=== PATIENT | female | born 1965 | race Caucasian/White ===

== ENCOUNTER 2021-04-17 08:11 | Outpatient (REF) | payer OTHER, SELFPAY ==
[2021-04-17 11:39] LABS: Hemoglobin 13.8 g/dl (12.0-16.0); Mean Corpuscular HGB Conc 32.1 g/dl (31.0-35.0); Mean Corpuscular Hemoglobin 28.4 pg (27.0-33.0); Mean Corpuscular Volume 88.5 fL (80-98); Mean Platelet Volume 10.3 fL (9.4-12.3); Platelet Count 378 X10*3/uL (160-400); Red Blood Count 4.86 X10*6/uL (4.20-5.50); White Blood Count 5.8 X10*3/uL (4.8-10.8)
[2021-04-17 12:02] LABS: Estimated Average Glucose 105 mg/dL; Hemoglobin A1c % 5.3 %
[2021-04-17 12:03] LABS: Alanine Aminotransferase 18 U/L (0-31); Albumin Level 4.6 g/dL (3.5-5.0); Alkaline Phosphatase 90 U/L (39-117); Anion Gap 12 (12-20); Aspartate Amino Transferase 15 U/L (5-31); Bilirubin Total 0.4 mg/dL (0.0-1.0); Blood Urea Nitrogen 21 mg/dL (9-16); Calcium 9.6 mg/dL (8.4-10.2); Carbon Dioxide 29 mmol/L (22-29); Chloride 103 mmol/L (96-108); Cholesterol 242 mg/dL; Estimated Glomerular Filt Rate > 60; Glucose Fasting 84 mg/dL (60-99); HDL Cholesterol 63 mg/dL; LDL Cholesterol Calculated 151 mg/dl; Sodium 140 mmol/L (135-145); Total Protein 7.2 g/dL (6.5-8.0); Triglycerides 141 mg/dL
[2021-04-17 12:08] LABS: TSH reflex Free T4 2.42 uIU/mL (0.32-4.0)
== END 2021-04-17 08:12 | disposition home or self-care (01) ==
LOC: HO.HMGCLDS 08:11
PROVIDERS: PCP Physician Assistant; Visit Provider Physician Assistant
DX: I10 Essential (primary) hypertension (principal); Z13.1 Encounter for screening for diabetes mellitus; Z13.220 Encounter for screening for lipoid disorders; Z13.29 Encounter for screening for other suspected endocrine disorder
CPT/HCPCS: 36415; 80053; 80061; 83036; 84443; 85027

== ENCOUNTER 2021-06-18 06:59 | Outpatient (REF) | payer OTHER, SELFPAY ==
[2021-06-18 11:46] LABS: Alanine Aminotransferase 10 U/L (0-31); Albumin Level 4.1 g/dL (3.5-5.0); Alkaline Phosphatase 98 U/L (39-117); Anion Gap 12 (12-20); Aspartate Amino Transferase 13 U/L (5-31); Bilirubin Total 0.3 mg/dL (0.0-1.0); Blood Urea Nitrogen 23 mg/dL (9-16); C Reactive Protein 1.78 mg/dL (< or = 0.50); Calcium 9.5 mg/dL (8.4-10.2); Carbon Dioxide 27 mmol/L (22-29); Chloride 105 mmol/L (96-108); Cholesterol 196 mg/dL; Estimated Glomerular Filt Rate > 60; Glucose Fasting 91 mg/dL (60-99); HDL Cholesterol 50 mg/dL; LDL Cholesterol Calculated 121 mg/dl; Potassium 4.4 mmol/L (3.3-5.1); Rheumatoid Factor < 15.0 IU/mL (<15.0); Sodium 140 mmol/L (135-145); Triglycerides 125 mg/dL
[2021-06-18 12:23] LABS: Erythrocyte Sedimentation Rate 29 MM/HR (0-20)
[2021-06-20 15:06] LABS: Anti Nuclear Antibody Screen NEGATIVE (NEGATIVE)
== END 2021-06-18 07:00 | disposition home or self-care (01) ==
LOC: HO.HMGCLDS 06:59
PROVIDERS: PCP Physician Assistant; Visit Provider Physician Assistant
DX: R10.32 Left lower quadrant pain (principal); M25.50 Pain in unspecified joint; E78.9 Disorder of lipoprotein metabolism, unspecified
CPT/HCPCS: 36415; 80053; 80061; 85652; 86038; 86039; 86140; 86431

== ENCOUNTER 2021-06-26 09:01 | Outpatient (REF) | payer OTHER, SELFPAY ==
--- NOTE | ~2021-06-26 | XR_ITS ---
EXAMINATION: XR ANKLE, RIGHT CLINICAL INFORMATION: Pain. COMPARISON: None TECHNIQUE: AP, lateral, and mortise views of the right ankle. FINDINGS: Bony alignment and mineralization are normal. No fracture or dislocation is seen. There is a right ankle joint effusion. Boehler's angle is normal. There is no calcaneal spur. There is degenerative change of the dorsal midfoot. There is mild generalized soft tissue swelling. XR/XR ankle RT min 3V IMPRESSION: 1. No fracture or dislocation is seen. 2. There is a right ankle joint effusion. 3. There is mild generalized soft tissue swelling.
== END 2021-06-26 09:02 | disposition home or self-care (01) ==
LOC: HO.XRAY 09:01
PROVIDERS: PCP Physician Assistant; Visit Provider Nurse Practitioner Family
DX: M25.571 Pain in right ankle and joints of right foot (principal); M25.473 Effusion, unspecified ankle
CPT/HCPCS: 73610

== ENCOUNTER 2021-07-11 07:32 | Outpatient (REF) | payer OTHER, SELFPAY ==
--- NOTE | ~2021-07-11 | XR_ITS ---
EXAMINATION: XR ANKLE, RIGHT CLINICAL INFORMATION: Effusion right ankle COMPARISON: None TECHNIQUE: AP, lateral, and mortise views of the right ankle. FINDINGS: There is mild soft tissue swelling along the bilateral malleoli. The ankle mortise and subtalar joints are normal. No visible fracture or dislocation seen. There is body seen. XR/XR ankle RT min 3V IMPRESSION: Mild bimalleolar soft tissue swelling. No underlying fracture, dislocation or subluxation seen.
[2021-07-11 11:21] LABS: Hematocrit 39.6 % (37-47); Hemoglobin 12.6 g/dl (12.0-16.0); Mean Corpuscular HGB Conc 31.8 g/dl (31.0-35.0); Mean Corpuscular Hemoglobin 27.4 pg (27.0-33.0); Mean Corpuscular Volume 86.1 fL (80-98); Platelet Count 412 X10*3/uL (160-400); Red Cell Distribution Width 14.4 % (11.0-16.0); White Blood Count 9.4 X10*3/uL (4.8-10.8)
[2021-07-11 12:05] LABS: Anion Gap 16 (12-20); Blood Urea Nitrogen 25 mg/dL (9-16); C Reactive Protein 9.45 mg/dL (< or = 0.50); Carbon Dioxide 24 mmol/L (22-29); Chloride 102 mmol/L (96-108); Estimated Glomerular Filt Rate > 60; Glucose Random 80 mg/dL (60-115); Potassium 4.2 mmol/L (3.3-5.1); Sodium 138 mmol/L (135-145)
[2021-07-11 12:11] LABS: Erythrocyte Sedimentation Rate 56 MM/HR (0-20)
[2021-07-12 11:47] LABS: Lyme Abs Screen <0.90 index
== END 2021-07-11 07:33 | disposition home or self-care (01) ==
LOC: HO.HMGCLDS 07:32
PROVIDERS: PCP Physician Assistant; Visit Provider Physician Assistant
DX: L03.115 Cellulitis of right lower limb (principal); I10 Essential (primary) hypertension; M25.50 Pain in unspecified joint; M25.471 Effusion, right ankle
CPT/HCPCS: 36415; 73610; 80048; 85027; 85652; 86140; 86617; 86618

== ENCOUNTER 2021-07-12 09:21 | Outpatient (REF) | payer OTHER, SELFPAY ==
--- NOTE | ~2021-07-12 | CT_ITS ---
EXAMINATION: CT ANKLE RIGHT WITH CONTRAST CLINICAL INFORMATION: Cellulitis of the right lower limb. COMPARISON: None TECHNIQUE: CT scan of the right ankle was performed following administration of intravenous contrast (85 cc, Omnipaque 350). Coronal and sagittal reformatted images were obtained. FINDINGS: Mild subcutaneous edema is seen from the level of the malleoli bilaterally to the plantar soft tissues. No focal fluid collection is seen. The adjacent muscle and tendon are intact. There is no joint effusion. No radiopaque foreign body is seen. The ankle joint and mortise are intact. The tarsal bones are normally aligned. The joint spaces are unremarkable. The vascular structures are unremarkable. CT/CT ankle RT w con IMPRESSION: Mild subcutaneous edema seen in the inferior ankle extending to the plantar soft tissues without focal fluid collection or significant underlying osseous abnormality. If findings persist or worsen, short-term radiographic follow-up can be performed if clinically indicated to assess for change.
[2021-07-12] MEDS: iohexoL 350 MG/ML 100 ML INFUS..BTL IV (10:29)
== END 2021-07-12 09:22 | disposition home or self-care (01) ==
LOC: HO.CT 09:21
PROVIDERS: PCP Physician Assistant; Visit Provider Physician Assistant
DX: M25.473 Effusion, unspecified ankle (principal); L03.115 Cellulitis of right lower limb
CPT/HCPCS: 73701; Q9967

== ENCOUNTER → 2021-07-23 07:51 | Outpatient (BNVA) | payer OTHER, SELFPAY | PROVIDERS: Visit Provider Physician Assistant ==

== ENCOUNTER → 2021-08-07 15:44 | Outpatient (BNVA) | payer OTHER, SELFPAY | PROVIDERS: Referring Provider Physician Assistant; Visit Provider Nurse Practitioner ==

== ENCOUNTER → 2021-08-20 08:09 | Outpatient (BNVA) | payer OTHER, SELFPAY | PROVIDERS: Visit Provider Physician Assistant ==

== ENCOUNTER → 2021-09-13 11:36 | Outpatient (BNVA) | payer OTHER, SELFPAY | PROVIDERS: PCP Physician Assistant; Referring Provider Physician Assistant; Visit Provider Nurse Practitioner ==

== ENCOUNTER 2021-09-25 08:00 | Outpatient (RCR) | payer OTHER, SELFPAY ==
--- NOTE | 2021-09-25 13:44 | MHC.OT.DC ---
[address] [phone] F: [phone] Occupational Therapy Discharge Note Provider: Veronica Loya PA-C Diagnosis: Cellulitis right lower leg. Date of Surgery: Date of Evaluation: 09/06/21 Date of Discharge: 09/25/21 Treatments to Date: 6 Cancellations to Date: 0 No Shows to Date: 0 Discharge Status: Achieved Goals Improved Function Independent with HEP Discharge Summary: Pain and edema improved. Very slight medial ankle and lower leg edema palpated compared to left. Pt will benefit from a compression knee high vs the Marquita sleeve issued here. Increased tolerance with prolonged standing up to one hour prior to increasing discomfort and inc in ankle swelling. Recurrent ankle and lower leg pain and mild edema may be due to fluid overload from episode of cellutitis and improper kinematics with protecting the ankle , bunion as well as a childhood hip surgery. Pt now wearing a marquita sleeve and recommended arch support in her sneaker vs wearing flat ballet type shoes. She is also independent with foot and ankle strengthening exercises. Modified [place] for inc time for ther ex... Electronically Signed By: Nolvia Bai OT CHT CLT Reviewed/agree with student documentation: N/A Therapist: Please Sign and return to therapist, thank you for your referral.
== END 2021-09-25 13:45 | disposition home or self-care (01) ==
LOC: HO.OT 08:00
PROVIDERS: PCP Physician Assistant; Visit Provider Physician Assistant
DX: L03.115 Cellulitis of right lower limb (principal)
CPT/HCPCS: 97110; 97140; 97166

== ENCOUNTER → 2021-10-01 14:22 | Outpatient (BNVA) | payer OTHER, SELFPAY | PROVIDERS: Visit Provider Physician Assistant ==

== ENCOUNTER 2022-06-26 07:46 | Outpatient (REF) | payer OTHER, SELFPAY ==
--- NOTE | ~2022-06-26 | MM_ITS ---
EXAMINATION: MM SCREENING DIGITAL BREAST TOMOSYNTHESIS, BILATERAL CLINICAL INFORMATION: Screening. Asymptomatic. The lifetime risk of breast cancer based on the Tyrer-Cuzick Model is 6%. COMPARISON: Mammography: 07/12/2017, 07/12/2015 TECHNIQUE: Digital breast tomosynthesis is performed in both the craniocaudal and mediolateral oblique views along with computer-aided detection (CAD). Synthesized 2D images are generated from the tomosynthesis. FINDINGS: There are scattered areas of fibroglandular density (ACR BI-RADS breast composition Category b). Parenchymal pattern is similar to prior studies. There is no significant mass or architectural abnormality or abnormal calcifications. Biopsy clip marker again seen central 12:00 right breast. The axilla and skin contours are unremarkable. MM/MM tomosynthesis screening BI IMPRESSION: No mammographic evidence of malignancy. ASSESSMENT: BI-RADS 1: Negative RECOMMENDATION: Routine annual mammography screening. This patient's information was entered into a reminder system with a target due date for their next mammogram.
[2022-06-26 08:26] LABS: Hematocrit 39.4 % (37.0-47.0); Hemoglobin 12.9 g/dl (12.0-16.0); Mean Corpuscular HGB Conc 32.7 g/dl (31.0-35.0); Mean Corpuscular Volume 85.5 fL (80.0-98.0); Mean Platelet Volume 9.9 fL (9.4-12.3); Platelet Count 359 X10*3/uL (160-400); Red Blood Count 4.61 X10*6/uL (4.20-5.50); Red Cell Distribution Width 14.2 % (11.0-16.0); White Blood Count 5.8 X10*3/uL (4.8-10.8)
[2022-06-26 08:46] LABS: Alanine Aminotransferase 23 U/L (0-31); Albumin Level 4.3 g/dL (3.5-5.0); Alkaline Phosphatase 109 U/L (39-117); Anion Gap 16 (12-20); Aspartate Amino Transferase 22 U/L (5-31); Bilirubin Total 0.7 mg/dL (0.0-1.0); Blood Urea Nitrogen 17 mg/dL (9-16); C Reactive Protein 10.37 mg/dL (< or = 0.50); Calcium 9.4 mg/dL (8.4-10.2); Carbon Dioxide 25 mmol/L (22-29); Chloride 106 mmol/L (96-108); Cholesterol 225 mg/dL; Estimated Glomerular Filt Rate > 60; Glucose Fasting 97 mg/dL (60-99); HDL Cholesterol 62 mg/dL; LDL Cholesterol Calculated 144 mg/dl; Potassium 4.2 mmol/L (3.3-5.1); Sodium 143 mmol/L (135-145); Total Protein 7.3 g/dL (6.5-8.0); Triglycerides 97 mg/dL
[2022-06-26 09:09] LABS: TSH reflex Free T4 2.92 uIU/mL (0.32-4.0)
[2022-06-26 09:29] LABS: Erythrocyte Sedimentation Rate 34 MM/HR (0-20)
[2022-06-28 13:17] LABS: A. Phagocytphilium DNA,RT-PCR NOT DETECTED (NOT DETECTED); Babesia Microti DNA, RT-PCR NOT DETECTED (NOT DETECTED); Borrelia Miyamotoi,DNA RT-PCR NOT DETECTED (NOT DETECTED); E.Chaffeensis DNA RT-PCR NOT DETECTED (NOT DETECTED); Lyme(Borrelia ssp)DNA RT-PCR NOT DETECTED (NOT DETECTED)
[2022-06-28 13:32] LABS: Transglutaminase Ab IgG <1.0 U/mL; Transglutaminase IgA <1.0 U/mL
[2022-06-29 06:55] LABS: Source-Tick borne disease BLOOD
[2022-07-01 14:52] LABS: Cyclic Citrullinated Peptide <16 UNITS
== END 2022-06-26 07:47 | disposition home or self-care (01) ==
LOC: HO.MAMMO 07:46
PROVIDERS: PCP Physician Assistant; Visit Provider Physician Assistant
DX: Z12.31 Encounter for screening mammogram for malignant neoplasm of breast (principal); M25.50 Pain in unspecified joint; E78.9 Disorder of lipoprotein metabolism, unspecified; R14.0 Abdominal distension (gaseous); K21.9 Gastro-esophageal reflux disease without esophagitis; Z13.1 Encounter for screening for diabetes mellitus; Z13.29 Encounter for screening for other suspected endocrine disorder
CPT/HCPCS: 36415; 77063; 77067; 80053; 80061; 84443; 84550; 85027; 85652; 86140; 86200; 86364; 87798; 87801

== ENCOUNTER 2023-06-18 08:30 | Outpatient (AMB) | payer OTHER, SELFPAY ==
--- NOTE | 2023-06-18 08:36 | A.OFFPC_ITS ---
Vital Signs 06/18/23 08:37 Height 5 ft 4 in Weight 145 lb BMI 24.9 BP 122/80 Blood Pressure Location Lt brachial Position Sitting Pulse 67 Pulse Source Pulse Oximeter Temp Source Skin Pulse Oximetry (%) 97 Oxygen Delivery Method Room Air Intake Visit Reasons: Annual Exam Intake Note: Patient is here today for a physical. Clinical Documentation Consultant Required: No Allergies No Known Allergies Allergy (Verified 06/18/23 09:02) Medication List - Last Reconciled 06/18/23 by Shyam Hernandez PA-C polymyxin B sulf-trimethoprim 10,000 unit- 1 mg/mL (Polytrim) 1 drp ophthalmic (eye) .q6hour 7 days valacyclovir (Valtrex) 1,000 mg PO BID PRN 7 days Tobacco use date assessed: 06/18/23 Dental Screening Dental Screen Date: 06/18/23 Did you have a dental visit in the last 12 months?: No Did you have a dental problem in the last 6 months where you did not have access to dental care?: No Was dental information given to patient?: Patient has dentist HPI Annual Exam HPI Details ?Patient is a 58-year-old female here today for routine annual physical.? Patient has a past medical history significant for borderline high cholesterol, GERD, h/o? diverticulitis .. ? Diverticulosis: most recently colonoscopy showing diverticulosis, does often have left lower quadrant abdominal bloating and diarrhea.? She will keep a food diary to see if there is any gastric irritant that may be causing her symptoms. .. GERD: Reports continues to have GERD symptoms even with [id number] antacid medications. She has recently tried Nexium [id number] at though feels her symptoms continue to recur. .. ? Herpes simplex 1 infection:? patient reports often getting cold sores in her nose and on her lips several times a year.? She is willing to trial p.r.n. use of Valtrex during outbreaks.. ?mammogram: Done in June of 2022- [facility] 1 ?colorectal cancer screening: done at [facility] 2017-? hyperplastic polyp - repeat 10 years ?pipe roller: Does See Dr Rogers ([facility])- [place]. ?vaccines:? up-to-date with COVID vaccine, up-to-date with tetanus vaccine,? needs shingles ? [facility] Medical History (Updated 06/18/23 @ 13:42 by Shyam Hernandez PA-C) Cellulitis of right ankle Congenital hip dysplasia Diverticulitis GERD (gastroesophageal reflux disease) Surgical History History of section History of hip surgery History of total right hip arthroplasty Hx of colonoscopy Family History Father Diabetes Social History Housing: House Alcohol intake: current Patient Tobacco Use Status: Never used Tobacco e-Cigarette/Vaping Use: Never Used Second Hand Smoke Exposure: No service: No Current occupational status: employed Current occupation: [employer] Cognitive needs: No Hearing needs: No Vision needs: No Questionnaire PHQ-9 Over the last 2 weeks, how often have you been bothered by any of the following problems? 1. Little interest or pleasure in doing things: not at all 2. Feeling down, depressed, or hopeless: not at all 3. Trouble falling or staying asleep, or sleeping too much: not at all 4. Feeling tired or having little energy: not at all 5. Poor appetite or overeating: not at all 6. Feeling bad about yourself - or that you are a failure or have let yourself or your family down: not at all 7. Trouble concentrating on things, such as reading the newspaper or watching television: not at all 8. Moving or speaking so slowly that other people could have noticed. Or the opposite - being so fidgety or restless that you have been moving around a lot more than usual: not at all 9. Thoughts that you would be better off or of hurting yourself in some way: not at all Total score: 0 Depression Screening Interpretation: Negative 68480 - PHQ-9 Billing: Yes Source: Developed by Drs. Jann Mcconnell, Natalie Mendez, Mychal Baker and colleagues, with an educational misael from [employer]. Thrive Questionnaire Date Thrive assessed: 06/18/23 I am a: Patient What is your living situation today?: I have a steady place to live Within the past 12 months, did the food you bought not last and you didn't have the money to get more?: Never true Within the past 12 months, did you worry whether your food would run out before you got money to buy more?: Never true AUDIT C Alcohol Use Questionnaire (AUDIT-C) 1. How often do you have a drink containing alcohol?: Monthly or less 2. How many drinks containing alcohol do you have on a typical day when you are drinking?: 1 or 2 3. How often do you have six or more drinks on one occasion?: Never Total Score: 1 DONNIE-7 AMB Questionnaire DONNIE-7 Date DONNIE - 7 assessed: 06/18/23 Feeling nervous, anxious, or on edge: 0 = Not at all Not being able to stop or control worryin = Not at all Worrying too much about different things: 0 = Not at all Trouble relaxin = Not at all Being so restless that it is hard to sit still: 0 = Not at all Becoming easily annoyed or irritable: 0 = Not at all Feeling afraid as if something awful might happen: 0 = Not at all Total DONNIE-7 score (0-4 normal; 5-9 mild; 10-14 moderate; 15-21 severe): 0 Source: Developed by Drs. Jann Mcconnell, Natalie Mendez, Mychal Baker and colleagues, with an educational misael from [employer]. DONNIE-7 Assessment Billing DONNIE-7 Assessment Tool: DONNIE-7 Assessment 28497 Review of Systems Const Denies body aches, Denies chills, Denies excessive sweating, Denies fatigue, Denies fever(s) and Denies headache(s) Eyes Denies blurry vision ENT Denies dysphagia, Denies vertigo, Denies dizziness, Denies headache(s), Denies hearing loss and Denies tinnitus Card Denies chest pain, Denies chest pain with activity, Denies syncope, Denies irregular heart rhythm and Denies dyspnea Resp Denies chest congestion, Denies cough, Denies hemoptysis, Denies dyspnea and Denies wheezing GI Denies abdominal pain, Denies melena, Denies hematochezia, Denies coffee ground emesis, Denies dysphagia, Denies diarrhea, Denies nausea and Denies vomiting Denies urinary frequency, Denies dysuria, Denies urinary hesitancy and Denies urinary urgency Musc Denies arthralgias, Denies limited range of motion, Denies muscle cramps and Denies muscle weakness Skin/Breast Denies rash and Denies skin ulcer Neuro Denies Abnormal speech present, Denies confusion, Denies vertigo, Denies dizziness, Denies syncope, Denies headache(s), Denies memory loss and Denies seizure-like activity Psych Denies anxiety, Denies confusion, Denies depression, Denies memory loss, Denies panic attacks and Denies paranoia Endo Denies excessive sweating, Denies fatigue, Denies flushing, Denies polydipsia and Denies polyuria Aller/Immun Denies wheezing Physical exam (Primary Care) Vital Signs: Last Vital Signs Pulse 67 06/18/23 08:37 BP 122/80 06/18/23 08:37 Pulse Ox 97 06/18/23 08:37 Oxygen Delivery Method Room Air 06/18/23 08:37 BMI result Body Mass Index 24.9 Tobacco/Smoking Status: Tobacco use Status Tobacco use date assessed 06/18/23 06/18/23 08:41 Patient Tobacco Use Status Never used Tobacco 06/18/23 08:41 e-Cigarette/Vaping Use Never Used 06/18/23 08:41 PHQ-9: PHQ-9 Score PHQ-9: Total score 0 06/18/23 09:03 Depression Screening Interpretation: Negative Thrive Assessment: Date of Thrive Assessment Date Thrive assessed 06/18/23 06/18/23 08:41 Const General: cooperative, comfortable, no acute distress, alert and awake; No confusion Orientation/consciousness: oriented to person, oriented to place, patient oriented x3 and No confusion HENMT Head: Yes normocephalic Ears: external ears normal and TM's normal bilaterally Face and sinus: No sinus tenderness Mouth: Normal oral and palatal mucosa present and tongue normal Teeth and gingiva: dentition normal and gingiva normal Throat: Yes posterior oropharynx normal, Yes tonsils normal and Yes uvula midline Eyes Conjunctivae: conjunctivae normal Sclerae: sclerae normal Pupils: Equal, round and reactive pupils present EOM: EOMs intact bilaterally Direct Ophthalmoscopy: No no photophobia Neck Neck: Yes no lymphadenopathy, No tender and Yes no JVD Thyroid: Thyroid normal Carotids: no bruits Chest Chest palpation & inspection: no tenderness Resp Effort & Inspection: normal respiratory effort, no audible wheezes, not labored and no stridor Auscultation: no crackles, no rales, no rhonchi and no wheezes Cardio Jugular venous distension: no JVD Rate: regular rate, not bradycardic and not tachycardic Rhythm: regular rhythm Bruits: no carotid bruits Peripheral pulses: Peripheral pulses 2+ throughout GI Inspection: Yes normal to inspection, No abdominal wall ecchymosis and No visible herniation Palpation (GI): Soft to palpation, nontender, no guarding, not rigid and No hepatosplenomegaly present Auscultation: normoactive bowel sounds General: Yes no CVA tenderness Back/Spine/Pelvis Back: no CVA tenderness and No back tenderness Cervical Spine: cervical ROM normal Thoracic/Lumbar Spine: thoracic and lumbar spine normal to inspection, straight leg raise negative bilaterally, No thoraco-lumbar ROM limited and No lumbar spinal tenderness Skin Lesions: no lesions Rashes: no rashes Wounds: no wounds Neuro General: oriented to person, oriented to place, patient oriented x3, CN's II-XI intact bilaterally and No confusion Cranial nerves: Yes Equal, round and reactive pupils present and Yes Normal accommodation reflex present Cognition (Neuro): normal cognition Speech: No Abnormal speech present Gait exam (Neuro): Normal gait present Motor exam (neuro): 5/5 motor strength present throughout Extrem Right upper extremity: full ROM; no cyanosis Left upper extremity: full ROM; no cyanosis Right lower extremity: no edema Left lower extremity: no edema Psych Appearance: grossly normal Mental Status: mental status grossly normal Affect: normal affect Attitude: cooperative Thought process: Normal thought process present Assessment and Plan Assessment & Plan (1) Annual physical exam: Code(s): Z00.00 - Encounter for general adult medical examination without abnormal findings (2) Herpes simplex type 1 infection: Code(s): B00.9 - Herpesviral infection, unspecified Plan: Patient has a few herpes infections per year. Does use Valtrex and topical antiviral with decent relief of her symptoms. (3) GERD (gastroesophageal reflux disease): Code(s): K21.9 - Gastro-esophageal reflux disease without esophagitis Qualifiers: Esophagitis presence: without esophagitis Qualified Code(s): K21.9 - Gastro-esophageal reflux disease without esophagitis Plan: Patient's GERD symptoms have been recurring reviewed with the use of PPI or Tums. Will refer to gastro to evaluate with endoscopy. Will test for H pylori with stool. (4) Screening for diabetes mellitus (DM): Code(s): Z13.1 - Encounter for screening for diabetes mellitus Orders: Orders H pylori Ag Stool Today K21.9 - Gastro-esophageal reflux disease without esophagitis Comprehensive Wallace. Panel Fast Today Z13.1 - Encounter for screening for diabetes mellitus Complete Blood Count no Diff Today K21.9 - Gastro-esophageal reflux disease without esophagitis Lipid Panel Today E78.9 - Disorder of lipoprotein metabolism, unspecified Referrals Gastroenterology Referral K21.9 - Gastro-esophageal reflux disease without esophagitis Medications: New omeprazole 40 mg PO DAILY 30 caps 1RF K21.9 - Gastro-esophageal reflux disease without esophagitis Refilled valacyclovir (Valtrex) 1,000 mg PO BID 7 days PRN 14 tabs 0RF cold sores B00.9 - Herpesviral infection, unspecified Discontinued polymyxin B sulf-trimethoprim 10,000 unit- 1 mg/mL (Polytrim) while awake; do not exceed 6 doses in 24 hours Discontinued Reason: Doctor's Order 1 drp ophthalmic (eye) .q6hour 7 days 10 mL 0RF H10.9 - Unspecified conjunctivitis Coding Level of Care Code Est Pt Prev Care 40-64y(04344) Diagnoses Annual physical exam Z00.00 Herpes simplex type 1 infection B00.9 GERD (gastroesophageal reflux disease) K21.9 Esophagitis presence: without esophagitis Screening for diabetes mellitus (DM) Z13.1 Additional Codes DONNIE-7 Assessment Billing - DONNIE-7 Assessment Tool: DONNIE-7 Assessment [id number] ([id number])
[2023-06-18 08:37] VITALS: BP 122/80; PULSE 67; O2SAT 97; BMI 24.9
== END 2023-06-18 09:16 | disposition home or self-care (01) ==
PROVIDERS: Visit Provider Physician Assistant
DX: Z00.00 Encounter for general adult medical examination without abnormal findings (principal); B00.9 Herpesviral infection, unspecified; K21.9 Gastro-esophageal reflux disease without esophagitis; Z13.1 Encounter for screening for diabetes mellitus
CPT/HCPCS: 99396

== ENCOUNTER 2023-07-11 08:01 | Outpatient (REF) | payer OTHER, SELFPAY ==
--- NOTE | ~2023-07-11 | MM_ITS ---
EXAMINATION: MM SCREENING DIGITAL BREAST TOMOSYNTHESIS, BILATERAL CLINICAL INFORMATION: Screening. Asymptomatic. COMPARISON: Mammography: This study is compared with prior exams dating back to 2017. TECHNIQUE: Digital breast tomosynthesis is performed in both the craniocaudal and mediolateral oblique views along with computer-aided detection (CAD). Synthesized 2D images are generated from the tomosynthesis. FINDINGS: There are scattered areas of fibroglandular density (ACR BI-RADS breast composition Category b). There are no significant masses, abnormal calcifications, or other abnormalities. There is a tissue marker present in the right breast from prior benign percutaneous biopsy. MM/MM tomosynthesis screening BI IMPRESSION: No mammographic evidence of malignancy. ASSESSMENT: BI-RADS BI-RADS 2 - Benign Findings RECOMMENDATION: Routine annual mammography screening. 1 year F/U This examination should not preclude the clinical evaluation of a suspicious palpable abnormality. This patient's information was entered into a reminder system with a target due date for their next mammogram.
== END 2023-07-11 08:02 | disposition home or self-care (01) ==
LOC: HO.MAMMO 08:01
PROVIDERS: Visit Provider Physician Assistant
DX: Z12.31 Encounter for screening mammogram for malignant neoplasm of breast (principal)
CPT/HCPCS: 77063; 77067

== ENCOUNTER → 2023-07-11 08:15 | Outpatient (BNV) | payer OTHER, SELFPAY | PROVIDERS: Visit Provider Radiology Diagnostic Radiology | DX: Z12.31 Encounter for screening mammogram for malignant neoplasm of breast (principal) | CPT/HCPCS: 77063; 77067 ==

== ENCOUNTER 2023-08-14 15:20 | Outpatient (AMB) | payer OTHER, SELFPAY ==
--- NOTE | 2023-08-14 15:24 | A.OFFVIS_ITS ---
Intake Vital Signs 08/14/23 15:28 Height 5 ft 4 in Weight 149 lb 14.629 oz BMI 25.7 BP 142/65 H Blood Pressure Location Lt brachial Position Sitting Pulse 61 Intake Visit Reasons: GERD/last seen 2020 Intake Note: Meg presents in the office as a follow up for GERD. CC: She states that she has been taking omeprazole because of acid reflux. She checked her foods that she eats and she did not see anything that would cause it specifically. 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 That is why she requested an earlier appointment. She knows that the pain is worse when she bends forward and when she walks and is mildly worse before a bowel movement but not relieved when she moves her bowels. She describes the quality of pain is stabbing. She restarted her anti-inflammatory and now the pain has resolved. She completed the Flagyl and her gas is better but she is uncertain if it is the fiber or the Flagyl that is the cause. She had to stop taking it after 7 days only because she developed urine tract infection and had to go to a different antibiotic. She is taking the fiber supplement twice a day and she found that this is normalizing her bowels. She now has less trouble with gas and bloating and the strange smell seems to also have improved. She is happy with her stooling. She never had diarrhea or rectal bleeding when she had her discomfort. Her initial diagnosis of diverticulitis was may without any imaging only because she had a colonoscopy that showed diverticulosis. I am beginning to doubt whether this is actually her problem a whether she has sacroiliitis. I do an orthopedic exam today that is largely negative but again her pain has now resolved on her anti inflammatory. I am that get an x-ray of her low back and SI joints and I suggest that we do her exam again when she is no longer on her anti-inflammatory medications. She will be on it for about another 2 and half weeks. Return office visit in 4 weeks so we can evaluate whether her symptoms returned and try to tease out if this in fact is bowel related or musculoskeletal in origin (2) GERD (gastroesophageal reflux diseas e): Code(s): K21.9 - Gastro-esophageal reflux disease without esophagitis Qualifiers: Esophagitis presence: without esophagitis Qualified Code(s): K21.9 - Gastro-esophageal reflux disease without esophagitis (3) Diverticulitis: Code(s): K57.92 - Diverticulitis of intestine, part unspecified, without perforation or abscess without bleeding (4) Back pain: Code(s): M54.9 - Dorsalgia, unspecified (5) Groin pain: Code(s): R10.30 - Lower abdominal pain, unspecified Orders: Orders XR lumbar spine 2- 3V Today M54.9 - Dorsalgia, unspecified XR sacroiliac join t min 3V Today R10.30 - Lower abd ominal pain, unspe cified X-RAY OF THE LUMBAR SPINE AND SI JOINTS NOT YET OBTAINED TODAY'S VISIT She is complaining of increasing GERD, this has been an on and off problem for 1-2 years. It IS helped with omeprazole, but she does not want to take it for life w/o knowing why. She does drink wine at night, has done other food lists in the past w/o any specific triggers found. Maybe some weight gain. On and off naproxen use. No GB disease known in FHX. Will get an ultrasound, a barium swallow an H pylori stool to see we can find any reversible causes for her GERD. I explained to her that often there are not any smoking done as to why they are having it is simply a combination of H, genetics, diet habits and sometimes weight. Return office visit after ultrasound [facility] Medical History (Updated 08/14/23 @ 15:43 by SCOTT Toledo) Congenital hip dysplasia Cellulitis of right ankle Diverticulitis GERD (gastroesophageal reflux disease) Surgical History History of section History of hip surgery Hx of colonoscopy History of total right hip arthroplasty Family History Father Diabetes Social History Housing: House Alcohol intake: current Patient Tobacco Use Status: Never used Tobacco e-Cigarette/Vaping Use: Never Used Second Hand Smoke Exposure: No service: No Current occupational status: employed Current occupation: [employer]- [employer] Cognitive needs: No Hearing needs: No Vision needs: No Review of Systems Const Denies fatigue, Denies fever(s), Denies night sweats, Denies poor appetite, Reports weight gain and Denies weight loss ENT Reports Normal hearing present, Denies dental pain, Denies dysphagia, Denies hearing loss, Denies mouth pain, Denies odynophagia, Denies throat swelling, Denies tongue swelling and Reports other (Dentition adequate) Card Reports no additional complaints Resp Reports no additional complaints GI Denies abdominal pain, Denies melena, Denies bloating, Denies hematochezia, Denies constipation, Denies GI cramping, Denies dysphagia, Denies excessive flatus, Denies early satiety, Reports heartburn, Denies diarrhea, Denies nausea, Denies odynophagia, Denies vomiting and Denies hematemesis Skin/Breast Denies pruritus, Denies lesions, Denies rash and Denies jaundice Neuro Reports Normal hearing present and Denies Abnormal speech present Endo Denies fatigue Aller/Immun Denies throat swelling and Denies tongue swelling Physical Exam Vital Signs: Last Vital Signs Pulse 61 08/14/23 15:28 BP 142/65 H 08/14/23 15:28 BMI result Body Mass Index 25.7 Const General: cooperative, no acute distress, well developed and well groomed Nutritional Appearance: average body habitus and well nourished Orientation/consciousness: oriented to person, oriented to place and oriented to time Limitations: No language barrier HEENT Head: Yes normocephalic and Yes atraumatic Eyes General: appearance normal, both eyes and all related structures Pupils: Equal, round and reactive pupils present Neck Neck: Yes normal visual inspection and Yes no lymphadenopathy Thyroid: Thyroid normal Resp Effort & Inspection: normal respiratory effort and able to speak in complete sentences Auscultation: clear to auscultation bilaterally Cardio Rate: regular rate Rhythm: regular rhythm Heart sounds: Normal, physiologic split S2 sound present Peripheral pulses: radial pulses present and posterior tibial pulses present GI Inspection: No distended and No Abdominal panniculus present Palpation (GI): Soft to palpation, nontender, no guarding, not rigid and No hepatosplenomegaly present Percussion: Yes normal to percussion Auscultation: normal bowel sounds Rectal Exam - Female: deferred Skin General skin exam: no rashes or lesions noted, turgor normal, skin not dry, no jaundice, No spider nevi and no striae Rashes: no rashes Nails: normal Neuro General: oriented to person, oriented to place and oriented to time Cranial nerves: Yes Equal, round and reactive pupils present and Yes Normal hearing present Speech: No Abnormal speech present Extrem General: Yes normal to inspection, No clubbing, No cyanosis and No edema Psych Appearance: grossly normal and well kempt Mental Status: mental status grossly normal Speech and movement: Normal speech and movement present Affect: normal affect Attitude: cooperative Thought process: Normal thought process present and not confabulating Thought content: Normal thought content present Insight: Limited insight present (Psych) and Poor insight present (Psych) Judgement: Limited judgement present (Psych) and Poor judgement present (Psych) Assessment & Plan Assessment & Plan (1) GERD (gastroesophageal reflux disease): Code(s): K21.9 - Gastro-esophageal reflux disease without esophagitis Qualifiers: Esophagitis presence: without esophagitis Qualified Code(s): K21.9 - Gastro-esophageal reflux disease without esophagitis Plan: X-RAY OF THE LUMBAR SPINE AND SI JOINTS NOT YET OBTAINED TODAY'S VISIT She is complaining of increasing GERD, this has been an on and off problem for 1-2 years. It IS helped with omeprazole, but she does not want to take it for life w/o knowing why. She does drink wine at night, has done other food lists in the past w/o any specific triggers found. Maybe some weight gain. On and off naproxen use. No GB disease known in FHX. Will get an ultrasound, a barium swallow an H pylori stool to see we can find any reversible causes for her GERD. I explained to her that often there are not any smoking done as to why they are having it is simply a combination of H, genetics, diet habits and sometimes weight. Return office visit after ultrasound (2) Back pain: Code(s): M54.9 - Dorsalgia, unspecified (3) RUQ abdominal pain: Comment: really more GERD but some pain Code(s): R10.11 - Right upper quadrant pain Orders: Orders US abdomen complete 08/14/23 R10.11 - Right upper quadrant pain H pylori Ag Stool 06/18/23 K21.9 - Gastro-esophageal reflux disease without esophagitis FL barium swallow 08/14/23 K21.9 - Gastro-esophageal reflux disease without esophagitis Coding Level of Care Code Est Pt Level 4 (38963) Diagnoses Gastroesophageal reflux disease without esophagitis K21.9 Esophagitis presence: without esophagitis Back pain M54.9 RUQ abdominal pain R10.11
[2023-08-14 15:28] VITALS: BP 142/65; PULSE 61; BMI 25.7
== END 2023-08-14 15:59 | disposition home or self-care (01) ==
PROVIDERS: PCP Physician Assistant; Visit Provider Nurse Practitioner
DX: K21.9 Gastro-esophageal reflux disease without esophagitis (principal); M54.9 Dorsalgia, unspecified; R10.11 Right upper quadrant pain
CPT/HCPCS: 99214

== ENCOUNTER → 2023-08-14 15:20 | Outpatient (BNVA) | payer OTHER, SELFPAY | PROVIDERS: PCP Physician Assistant; Visit Provider Nurse Practitioner ==

== ENCOUNTER 2023-08-27 08:56 | Outpatient (REF) | payer OTHER, SELFPAY ==
[2023-08-27 11:36] LABS: Hematocrit 41.8 % (37.0-47.0); Hemoglobin 13.3 g/dl (12.0-16.0); Mean Corpuscular HGB Conc 31.8 g/dl (31.0-35.0); Mean Corpuscular Hemoglobin 27.8 pg (27.0-33.0); Mean Corpuscular Volume 87.4 fL (80.0-98.0); Platelet Count 362 X10*3/uL (160-400); Red Blood Count 4.78 X10*6/uL (4.20-5.50); Red Cell Distribution Width 14.2 % (11.0-16.0); White Blood Count 4.7 X10*3/uL (4.8-10.8)
[2023-08-27 12:06] LABS: Alanine Aminotransferase 26 U/L (0-31); Albumin Level 4.1 g/dL (3.5-5.0); Alkaline Phosphatase 79 U/L (39-117); Anion Gap 11 (12-20); Aspartate Amino Transferase 26 U/L (5-31); Bilirubin Total 0.5 mg/dL (0.0-1.0); Blood Urea Nitrogen 22 mg/dL (9-16); Calcium 9.4 mg/dL (8.4-10.2); Carbon Dioxide 27 mmol/L (22-29); Chloride 105 mmol/L (96-108); Cholesterol 220 mg/dL (<200); Estimated Glomerular Filt Rate > 60; Glucose Fasting 87 mg/dL (60-99); HDL Cholesterol 51 mg/dL (>40); LDL Cholesterol Calculated 143 mg/dL (<100); Potassium 4.1 mmol/L (3.3-5.1); Sodium 139 mmol/L (135-145); Total Protein 7.1 g/dL (6.5-8.0); Triglycerides 131 mg/dL (<150)
== END 2023-08-27 08:57 | disposition home or self-care (01) ==
LOC: HO.HMGCX 08:56
PROVIDERS: PCP Physician Assistant; Visit Provider Nurse Practitioner
DX: Z13.1 Encounter for screening for diabetes mellitus (principal); R10.11 Right upper quadrant pain; K21.9 Gastro-esophageal reflux disease without esophagitis; E78.9 Disorder of lipoprotein metabolism, unspecified
CPT/HCPCS: 36415; 76700; 80053; 80061; 85027

== ENCOUNTER 2023-10-02 06:25 | Outpatient (REF) | payer OTHER, SELFPAY | END 2023-10-02 06:26 | disposition home or self-care (01) | LOC: HO.HMGCLNP 06:25 | PROVIDERS: Visit Provider Nurse Practitioner | DX: K21.9 Gastro-esophageal reflux disease without esophagitis (principal) | CPT/HCPCS: 87338 ==

== ENCOUNTER → 2023-10-23 08:40 | Outpatient (BNVA) | payer OTHER, SELFPAY | PROVIDERS: PCP Physician Assistant; Visit Provider Nurse Practitioner ==

== ENCOUNTER 2023-10-23 08:41 | Outpatient (AMB) | payer OTHER, SELFPAY ==
--- NOTE | 2023-10-23 08:43 | MHC.OFFVIS ---
Intake Vital Signs 10/23/23 08:47 Height 5 ft 4 in Weight 152 lb 1.903 oz BMI 26.1 BP 140/72 H Blood Pressure Location Lt brachial Position Sitting Pulse 63 Intake Visit Reasons: Follow up after US Intake Note: Meg presents in the office as a follow up of US and labs. CC: Patient reports doing well today and states as long as she takes probiotics and Omeprazole she is good. 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 She is complaining of increasing GERD, this has been an on and off problem for 1-2 years. It IS helped with omeprazole, but she does not want to take it for life w/o knowing why. She does drink wine at night, has done other food lists in the past w/o any specific triggers found. Maybe some weight gain. On and off naproxen use. No GB disease known in FHX. Will get an ultrasound, a barium swallow an H pylori stool to see we can find any reversible causes for her GERD. I explained to her that often there are not any smoking done as to why they are having it is simply a combination of H, genetics, diet habits and sometimes weight. Return office visit after ultrasound (2) Back pain: Code(s): M54.9 - Dorsalgia, unspecified (3) RUQ abdominal pain: Comment: really more GERD but some pain Code(s): R10.11 - Right upper quadrant pain Orders: Orders US abdomen complet e 08/14/23 R10.11 - Right upp er quadrant pain H pylori Ag Stool 06/18/23 K21.9 - Gastro-eso phageal reflux dis ease without esoph agitis FL barium swallow 08/14/23 K21.9 - Gastro-eso phageal reflux dis ease without esoph agitis Labs: Laboratory Tests 10/02/23 06:25 Stool H. pylori Ag negative Ultrasound of the abdomen 08/29/23 FINDINGS: PANCREAS: Normal. ABDOMINAL AORTA: The proximal, mid, and distal segments are normal in caliber. INFERIOR VENA CAVA: Visualized portions are normal. LIVER: Normal. The liver is normal in size. The liver contour is normal. Parenchymal echogenicity is normal. No focal hepatic lesion. There is no intrahepatic biliary duct dilatation seen. GALLBLADDER: A 3 mm nonmobile polyp is seen. The gallbladder is physiologically distended without evidence of stones, sludge, wall thickening or pericholecystic fluid. COMMON BILE DUCT: Normal in caliber measuring 0.16 cm in diameter. 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 No hydronephrosis or renal calculi. The kidney measures 10.7 cm in maximum dimension. LEFT KIDNEY: Normal. No hydronephrosis. No renal calculi or focal parenchymal lesions. The kidney measures 11.0 cm in maximum dimension. SPLEEN: Normal. The spleen measures 10.8 cm in maximum dimension. FREE FLUID: None. US/US abdomen complete IMPRESSION: 1. 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 This is of doubtful clinical significance. If of continued clinical concern (i.e., history of known malignancy or hematuria), this can be further evaluated with renal CT. 2. A 3 mm nonmobile gallbladder polyp is incidentally noted. Barium swallow ? SCHEDULED FOR 11/06/2023 X-RAY OF THE LUMBAR SPINE AND SI JOINTS NOT YET OBTAINED TODAY'S VISIT She says she is doing well on the omeprazole. It is working well to control her GERD. Also as long she takes a probiotic this seems to help her with her bowels. We reviewed the ultrasound there is a gallbladder polyp which likely is nothing but we can keep an eye on that to make sure it does not grow. 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 She was unaware of the upcoming barium swallow which appears to be booked on November 06 so will get her the exact time. I also reminder that I ordered some x-rays of her lumbar spine SI joints just to rule out any other sources of possible pain. Return office visit after the barium swallow. 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- [employer] Cognitive needs: No Hearing needs: No Vision needs: No Review of Systems Const Denies fatigue, Denies fever(s), Denies night sweats, Denies poor appetite and Denies weight loss ENT Reports Normal hearing present, Denies dental pain, Denies dysphagia, Denies hearing loss, Denies mouth pain, Denies odynophagia, Denies throat swelling, Denies tongue swelling and Reports other (Dentition adequate) Card Reports no additional complaints Resp Reports no additional complaints GI Denies abdominal pain, Denies melena, Denies bloating, Denies hematochezia, Reports constipation, Denies GI cramping, Denies dysphagia, Denies excessive flatus, Denies early satiety, Reports heartburn, Denies diarrhea, Denies nausea, Denies odynophagia, Denies vomiting and Denies hematemesis Musc Reports back pain Skin/Breast Denies pruritus, Denies lesions, Denies rash and Denies jaundice Neuro Reports Normal hearing present and Denies Abnormal speech present Endo Denies fatigue Aller/Immun Denies throat swelling and Denies tongue swelling Physical Exam Vital Signs: Last Vital Signs Pulse 63 10/23/23 08:47 BP 140/72 H 10/23/23 08:47 BMI result Body Mass Index 26.1 Const General: cooperative, no acute distress, well developed and well groomed Nutritional Appearance: average body habitus and well nourished Orientation/consciousness: oriented to person, oriented to place and oriented to time Limitations: No language barrier HEENT Head: Yes normocephalic and Yes atraumatic Eyes General: appearance normal, both eyes and all related structures Pupils: Equal, round and reactive pupils present Neck Neck: Yes normal visual inspection and Yes no lymphadenopathy Thyroid: Thyroid normal Resp Effort & Inspection: normal respiratory effort and able to speak in complete sentences Auscultation: clear to auscultation bilaterally Cardio Rate: regular rate Rhythm: regular rhythm Heart sounds: Normal, physiologic split S2 sound present Peripheral pulses: radial pulses present and posterior tibial pulses present GI Inspection: No distended and No Abdominal panniculus present Palpation (GI): Soft to palpation, nontender, no guarding, not rigid and No hepatosplenomegaly present Percussion: Yes normal to percussion Auscultation: normal bowel sounds Rectal Exam - Female: deferred Skin General skin exam: no rashes or lesions noted, turgor normal, skin not dry, no jaundice, No spider nevi and no striae Rashes: no rashes Nails: normal Neuro General: oriented to person, oriented to place and oriented to time Cranial nerves: Yes Equal, round and reactive pupils present and Yes Normal hearing present Speech: No Abnormal speech present Extrem General: Yes normal to inspection, No clubbing, No cyanosis and No edema Psych Appearance: grossly normal and well kempt Mental Status: mental status grossly normal Speech and movement: Normal speech and movement present Affect: normal affect Attitude: cooperative Thought process: Normal thought process present and not confabulating Thought content: Normal thought content present Insight: Good insight present (Psych) Judgement: Good judgement present (Psych) Assessment & Plan Assessment & Plan (1) RUQ abdominal pain: Comment: really more GERD but some pain Code(s): R10.11 - Right upper quadrant pain (2) GERD (gastroesophageal reflux disease): Code(s): K21.9 - Gastro-esophageal reflux disease without esophagitis Qualifiers: Esophagitis presence: without esophagitis Qualified Code(s): K21.9 - Gastro-esophageal reflux disease without esophagitis (3) Back pain: Code(s): M54.9 - Dorsalgia, unspecified Plan Barium swallow ? SCHEDULED FOR 11/06/2023 X-RAY OF THE LUMBAR SPINE AND SI JOINTS NOT YET OBTAINED TODAY'S VISIT She says she is doing well on the omeprazole. It is working well to control her GERD. Also as long she takes a probiotic this seems to help her with her bowels. We reviewed the ultrasound there is a gallbladder polyp which likely is nothing but we can keep an eye on that to make sure it does not grow. 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 She was unaware of the upcoming barium swallow which appears to be booked on November 06 so will get her the exact time. I also reminder that I ordered some x-rays of her lumbar spine SI joints just to rule out any other sources of possible pain. Return office visit after the barium swallow. Medications: Refilled omeprazole 40 mg PO DAILY 90 caps 1RF K21.9 - Gastro-esophageal reflux disease without esophagitis Coding Level of Care Code Est Pt Level 3 (82471) Diagnoses RUQ abdominal pain R10.11 Gastroesophageal reflux disease without esophagitis K21.9 Esophagitis presence: without esophagitis Back pain M54.9
[2023-10-23 08:47] VITALS: BP 140/72; PULSE 63; BMI 26.1
== END 2023-10-23 09:50 | disposition home or self-care (01) ==
PROVIDERS: PCP Physician Assistant; Visit Provider Nurse Practitioner
DX: R10.11 Right upper quadrant pain (principal); K21.9 Gastro-esophageal reflux disease without esophagitis; M54.9 Dorsalgia, unspecified
CPT/HCPCS: 99213

== ENCOUNTER 2023-11-06 08:55 | Outpatient (REF) | payer OTHER, SELFPAY ==
--- NOTE | ~2023-11-06 | XR_ITS ---
EXAMINATION: XR LUMBOSACRAL SPINE CLINICAL INFORMATION: Dorsalgia, unspecified COMPARISON: None available. TECHNIQUE: Three views of the lumbosacral spine. FINDINGS: There 5 nonrib-bearing lumbar-type vertebral bodies. The height of the vertebral bodies is well-maintained. There is loss of the usual lumbar lordosis which can be seen with muscle spasm. There is mild disc space narrowing at L4-L5 and L5-S1. Degenerative facet joint disease is seen at L4-L5 and L5-S1. There is minimal anterolisthesis of L4 with respect to L5. The sacroiliac joints are patent. Partial visualization of right total hip replacement. XR/XR lumbar spine 2-3V IMPRESSION: 1. Muscle spasm. 2. Degenerative disc disease and degenerative facet joint disease at L4-L5 and L5-S1. 3. Minimal anterolisthesis of L4 with respect to L5.
--- NOTE | ~2023-11-06 | XR_ITS ---
EXAMINATION: XR THORACOLUMBAR SPINE CLINICAL INFORMATION: Dorsalgia, unspecified COMPARISON: None available. TECHNIQUE: 3 views of the thoracic spine FINDINGS: The vertebral alignment is normal. No intrinsic bony abnormality. The disc heights and neural foramina are well maintained. The endplates and posterior elements are normal. No fracture or subluxation. The surrounding prevertebral soft tissues are unremarkable. There is marked multilevel degenerative disc disease in the cervical spine. XR/XR thoracic spine 2V IMPRESSION: No compression fractures or subluxations are identified. The disc spaces are preserved. No endplate changes are seen. The prevertebral soft tissues are normal. The foramina are patent. There are is marked multilevel degenerative disc disease of the cervical spine.
== END 2023-11-06 08:56 | disposition home or self-care (01) ==
LOC: HO.XRAY 08:55
PROVIDERS: PCP Physician Assistant; Visit Provider Nurse Practitioner
DX: M54.9 Dorsalgia, unspecified (principal)
CPT/HCPCS: 72070; 72100

== ENCOUNTER 2023-11-26 10:47 | Outpatient (REF) | payer OTHER, SELFPAY | END 2023-11-26 10:48 | disposition home or self-care (01) | LOC: HO.XRAY 10:47 | PROVIDERS: PCP Physician Assistant; Visit Provider Nurse Practitioner | DX: K21.9 Gastro-esophageal reflux disease without esophagitis (principal) | CPT/HCPCS: 74220 ==

== ENCOUNTER → 2023-11-26 10:48 | Outpatient (BNV) | payer OTHER, SELFPAY | PROVIDERS: PCP Physician Assistant; Visit Provider Radiology Diagnostic Radiology | DX: K21.9 Gastro-esophageal reflux disease without esophagitis (principal); Z01.818 Encounter for other preprocedural examination | CPT/HCPCS: 74221 ==

== ENCOUNTER 2023-12-03 10:03 | Outpatient (AMB) | payer OTHER, SELFPAY ==
--- NOTE | 2023-12-03 10:07 | MHC.OFFVIS ---
Intake Vital Signs 12/03/23 10:14 Height 5 ft 4 in Weight 151 lb 10.848 oz BMI 26.0 BP 133/75 Blood Pressure Location Rt brachial Position Sitting Pulse 62 Intake Visit Reasons: Follow up barium swallow Intake Note: Meg presents in the office today in follow up of barium swallow. CC: Patient reports [employer] Required: No Allergies No Known Allergies Allergy (Verified 12/03/23 10:25) HPI Follow up barium swallow HPI Details Assessment & Plan (1) RUQ abdominal pain: Comment: really more GERD but some pain Code(s): R10.11 - Right upper quadrant pain (2) GERD (gastroesophageal reflux disease): Code(s): K21.9 - Gastro-esophageal reflux disease without esophagitis Qualifiers: Esophagitis presence: without esophagitis Qualified Code(s): K21.9 - Gastro-esophageal reflux disease without esophagitis (3) Back pain: Code(s): M54.9 - Dorsalgia, unspecified Plan. She says she is doing well on the omeprazole. It is working well to control her GERD. Also as long she takes a probiotic this seems to help her with her bowels. We reviewed the ultrasound there is a gallbladder polyp which likely is nothing but we can keep an eye on that to make sure it does not grow. 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 She was unaware of the upcoming barium swallow which appears to be booked on November 06 so will get her the exact time. I also reminder that I ordered some x-rays of her lumbar spine SI joints just to rule out any other sources of possible pain. Return office visit after the barium swallow. Medications: Refilled omeprazole 40 mg PO DAILY 90 caps 1RF K21.9 - Gastro-eso phageal reflux dis ease without esoph agitis BARIUM SWALLOW 11/27/23 FINDINGS: Lateral cine images of the oropharynx and hypopharynx demonstrate normal swallow mechanism with normal epiglottic inversion and soft palate elevation. No tracheal penetration, glottic or subglottic aspiration identified. No nasopharyngeal reflux present. Hypopharyngeal structures appear normal without evidence of mass or diverticulum. There was no significant cricopharyngeal achalasia. Dual and single contrast images of the esophagus demonstrate normal caliber, contour, and mucosal pattern. No evidence of stricture, mass, or ulcerations identified. Esophageal peristalsis was mildly disordered. A small type I hiatal hernia is present. Gastroesophageal reflux is seen up to the thoracic inlet. Dual contrast and single contrast images of the stomach demonstrated normal contour and mucosal pattern without evidence of mass, ulceration, or other abnormality. Contrast freely passed into the gastric antrum and duodenal bulb without delay. Single and air-contrast images of the duodenal bulb demonstrate no abnormality. The duodenal sweep has a normal appearance, course, and mucosal fold appearance. The imaged proximal jejunum has a normal fold pattern and caliber. FLUOROSCOPY TIME: 2 minutes 18 seconds Number of Spot Images: 12 Number of Cine: 5 DOSE AREA PRODUCT: 1381 uGy-m2 (microgray-meter squared) FL/FL barium swallow IMPRESSION: 1. Small type I hiatal hernia 2. Significant gastroesophageal reflux 3. Mildly disordered esophageal peristalsis. X-RAY OF THE LUMBAR SPINE AND SI JOINTS 11/20/23 THORACIC SPINE FINDINGS: The vertebral alignment is normal. No intrinsic bony abnormality. The disc heights and neural foramina are well maintained. The endplates and posterior elements are normal. No fracture or subluxation. The surrounding prevertebral soft tissues are unremarkable. There is marked multilevel degenerative disc disease in the cervical spine. XR/XR thoracic spine 2V IMPRESSION: No compression fractures or subluxations are identified. The disc spaces are preserved. No endplate changes are seen. The prevertebral soft tissues are normal. The foramina are patent. There are is marked multilevel degenerative disc disease of the cervical spine. LUMBAR SPINE FINDINGS: There 5 nonrib-bearing lumbar-type vertebral bodies. The height of the vertebral bodies is well-maintained. There is loss of the usual lumbar lordosis which can be seen with muscle spasm. There is mild disc space narrowing at L4-L5 and L5-S1. Degenerative facet joint disease is seen at L4-L5 and L5-S1. There is minimal anterolisthesis of L4 with respect to L5. The sacroiliac joints are patent. Partial visualization of right total hip replacement. XR/XR lumbar spine 2-3V IMPRESSION: 1. Muscle spasm. 2. Degenerative disc disease and degenerative facet joint disease at L4-L5 and L5-S1. 3. Minimal anterolisthesis of L4 with respect to L5. TODAY'S VISIT She continues to do very well with her GERD on the omeprazole 40 mg. She denies any dysphagia despite the finding of some disordered swallowing on the barium swallow. We really did this study to make sure there was not a large paraesophageal hernia contributing to her GERD. She is now quite satisfied with this is a GI regimen. I had done some x-rays of her spine to try to explain her left groin pain that radiates to her hip. 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 This could be causing her problems especially since we see quite a lot of muscle spasm is straightening of the normal lumbar lordosis. She could benefit from physical therapy and/or injection therapy depending on any symptoms but I deferred her primary care provider to refer her for any additional services going forward. 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- [employer] Cognitive needs: No Hearing needs: No Vision needs: No Review of Systems Const Denies fatigue, Denies fever(s), Denies night sweats, Denies poor appetite and Denies weight loss ENT Reports Normal hearing present, Denies dental pain, Denies dysphagia, Denies hearing loss, Denies mouth pain, Denies odynophagia, Denies throat swelling, Denies tongue swelling and Reports other (Dentition adequate) Card Reports no additional complaints Resp Reports no additional complaints GI Denies abdominal pain, Denies melena, Denies bloating, Denies hematochezia, Denies constipation, Denies GI cramping, Denies dysphagia, Denies excessive flatus, Denies early satiety, Reports heartburn, Denies diarrhea, Denies nausea, Denies odynophagia, Denies vomiting and Denies hematemesis Musc Reports back pain and Reports arthralgias Skin/Breast Denies pruritus, Denies lesions, Denies rash and Denies jaundice Neuro Reports Normal hearing present and Denies Abnormal speech present Endo Denies fatigue Aller/Immun Denies throat swelling and Denies tongue swelling Physical Exam Vital Signs: Last Vital Signs Pulse 62 12/03/23 10:14 BP 133/75 12/03/23 10:14 BMI result Body Mass Index 26.0 Const General: cooperative, no acute distress, well developed and well groomed Nutritional Appearance: average body habitus and well nourished Orientation/consciousness: oriented to person, oriented to place and oriented to time Limitations: No language barrier HEENT Head: Yes normocephalic and Yes atraumatic Eyes General: appearance normal, both eyes and all related structures Pupils: Equal, round and reactive pupils present Neck Neck: Yes normal visual inspection and Yes no lymphadenopathy Thyroid: Thyroid normal Resp Effort & Inspection: normal respiratory effort and able to speak in complete sentences Auscultation: clear to auscultation bilaterally Cardio Rate: regular rate Rhythm: regular rhythm Heart sounds: Normal, physiologic split S2 sound present Peripheral pulses: radial pulses present and posterior tibial pulses present GI Inspection: No distended and No Abdominal panniculus present Palpation (GI): Soft to palpation, nontender, no guarding, not rigid and No hepatosplenomegaly present Percussion: Yes normal to percussion Auscultation: normal bowel sounds Rectal Exam - Female: deferred Skin General skin exam: no rashes or lesions noted, turgor normal, skin not dry, no jaundice, No spider nevi and no striae Rashes: no rashes Nails: normal Neuro General: oriented to person, oriented to place and oriented to time Cranial nerves: Yes Equal, round and reactive pupils present and Yes Normal hearing present Speech: No Abnormal speech present Extrem General: Yes normal to inspection, No clubbing, No cyanosis and No edema Psych Appearance: grossly normal and well kempt Mental Status: mental status grossly normal Speech and movement: Normal speech and movement present Affect: normal affect Attitude: cooperative Thought process: Normal thought process present and not confabulating Thought content: Normal thought content present Insight: Fair insight present (Psych) Judgement: Fair judgement present (Psych) Results Reviewed Results Reviewed: BARIUM SWALLOW 11/27/23 FINDINGS: Lateral cine images of the oropharynx and hypopharynx demonstrate normal swallow mechanism with normal epiglottic inversion and soft palate elevation. No tracheal penetration, glottic or subglottic aspiration identified. No nasopharyngeal reflux present. Hypopharyngeal structures appear normal without evidence of mass or diverticulum. There was no significant cricopharyngeal achalasia. Dual and single contrast images of the esophagus demonstrate normal caliber, contour, and mucosal pattern. No evidence of stricture, mass, or ulcerations identified. Esophageal peristalsis was mildly disordered. A small type I hiatal hernia is present. Gastroesophageal reflux is seen up to the thoracic inlet. Dual contrast and single contrast images of the stomach demonstrated normal contour and mucosal pattern without evidence of mass, ulceration, or other abnormality. Contrast freely passed into the gastric antrum and duodenal bulb without delay. Single and air-contrast images of the duodenal bulb demonstrate no abnormality. The duodenal sweep has a normal appearance, course, and mucosal fold appearance. The imaged proximal jejunum has a normal fold pattern and caliber. FLUOROSCOPY TIME: 2 minutes 18 seconds Number of Spot Images: 12 Number of Cine: 5 DOSE AREA PRODUCT: 1381 uGy-m2 (microgray-meter squared) FL/FL barium swallow IMPRESSION: 1. Small type I hiatal hernia 2. Significant gastroesophageal reflux 3. Mildly disordered esophageal peristalsis. X-RAY OF THE LUMBAR SPINE AND SI JOINTS 11/20/23 THORACIC SPINE FINDINGS: The vertebral alignment is normal. No intrinsic bony abnormality. The disc heights and neural foramina are well maintained. The endplates and posterior elements are normal. No fracture or subluxation. The surrounding prevertebral soft tissues are unremarkable. There is marked multilevel degenerative disc disease in the cervical spine. XR/XR thoracic spine 2V IMPRESSION: No compression fractures or subluxations are identified. The disc spaces are preserved. No endplate changes are seen. The prevertebral soft tissues are normal. The foramina are patent. There are is marked multilevel degenerative disc disease of the cervical spine. LUMBAR SPINE FINDINGS: There 5 nonrib-bearing lumbar-type vertebral bodies. The height of the vertebral bodies is well-maintained. There is loss of the usual lumbar lordosis which can be seen with muscle spasm. There is mild disc space narrowing at L4-L5 and L5-S1. Degenerative facet joint disease is seen at L4-L5 and L5-S1. There is minimal anterolisthesis of L4 with respect to L5. The sacroiliac joints are patent. Partial visualization of right total hip replacement. XR/XR lumbar spine 2-3V IMPRESSION: 1. Muscle spasm. 2. Degenerative disc disease and degenerative facet joint disease at L4-L5 and L5-S1. 3. Minimal anterolisthesis of L4 with respect to L5. Assessment & Plan Assessment & Plan (1) RUQ abdominal pain: Comment: really more GERD but some pain Code(s): R10.11 - Right upper quadrant pain (2) GERD (gastroesophageal reflux disease): Code(s): K21.9 - Gastro-esophageal reflux disease without esophagitis Qualifiers: Esophagitis presence: without esophagitis Qualified Code(s): K21.9 - Gastro-esophageal reflux disease without esophagitis (3) Back pain: Code(s): M54.9 - Dorsalgia, unspecified Plan She continues to do very well with her GERD on the omeprazole 40 mg. She denies any dysphagia despite the finding of some disordered swallowing on the barium swallow. We really did this study to make sure there was not a large paraesophageal hernia contributing to her GERD. She is now quite satisfied with this is a GI regimen. I had done some x-rays of her spine to try to explain her left groin pain that radiates to her hip. 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 This could be causing her problems especially since we see quite a lot of muscle spasm is straightening of the normal lumbar lordosis. She could benefit from physical therapy and/or injection therapy depending on any symptoms but I deferred her primary care provider to refer her for any additional services going forward. Return office visit in 6 months Medications: Refilled omeprazole 40 mg PO DAILY 90 caps 1RF K21.9 - Gastro-esophageal reflux disease without esophagitis Coding Level of Care Code Est Pt Level 3 (13943) Diagnoses RUQ abdominal pain R10.11 Gastroesophageal reflux disease without esophagitis K21.9 Esophagitis presence: without esophagitis Back pain M54.9
[2023-12-03 10:14] VITALS: BP 133/75; PULSE 62; BMI 26.0
== END 2023-12-03 10:50 | disposition home or self-care (01) ==
PROVIDERS: PCP Physician Assistant; Visit Provider Nurse Practitioner
DX: R10.11 Right upper quadrant pain (principal); K21.9 Gastro-esophageal reflux disease without esophagitis; M54.9 Dorsalgia, unspecified
CPT/HCPCS: 99213

== ENCOUNTER → 2023-12-03 10:03 | Outpatient (BNVA) | payer OTHER, SELFPAY | PROVIDERS: PCP Physician Assistant; Visit Provider Nurse Practitioner ==

== ENCOUNTER 2023-12-29 06:55 | Outpatient (REF) | payer OTHER, SELFPAY ==
[2023-12-29 11:27] LABS: Urine Cytology See Pathology rpt
[2023-12-29 11:36] LABS: Appearance Urine Clear; Color Urine Yellow; Glucose Urine UA Negative (Negative); Leukocyte Esterase Urine Negative (Negative); Nitrite Urine Negative (Negative); Specific Gravity - Urine 1.015 (1.005-1.025); Urine Blood Negative (Negative); Urine Ketones Negative (Negative); Urine Protein Negative (Neg-Trace)
== END 2023-12-29 06:56 | disposition home or self-care (01) ==
LOC: HO.HMGCLDS 06:55
PROVIDERS: PCP Physician Assistant; Visit Provider Physician Assistant
DX: N28.1 Cyst of kidney, acquired (principal); R30.0 Dysuria
CPT/HCPCS: 81003; 88112

== ENCOUNTER 2024-06-22 08:53 | Outpatient (AMB) | payer OTHER, SELFPAY ==
[2024-06-22 09:09] VITALS: BP 132/72; PULSE 60; O2SAT 95; BMI 26.5
--- NOTE | 2024-06-22 09:09 | MHC.PC.OV ---
Vital Signs 06/22/24 09:09 Height 5 ft 4 in Weight 154 lb 2 oz BMI 26.5 BP 132/72 Blood Pressure Location Lt brachial Position Sitting Pulse 60 Pulse Source Pulse Oximeter Pulse Oximetry (%) 95 Oxygen Delivery Method Room Air Intake Visit Reasons: Annual Exam Intake Note: Patient is here today for a physical. Warp Spooler Required: No Accompanied by: Self / Same As Patient Allergies No Known Allergies Allergy (Verified 06/22/24 09:15) Medication List - Last Reconciled 06/22/24 by Shyam Hernandez PA-C [magnesium PO] naproxen 500 mg PO BID omeprazole 40 mg PO DAILY [probiotic PO DAILY] valacyclovir (Valtrex) 1,000 mg PO BID PRN Tobacco use date assessed: 06/18/23 Dental Screening Dental Screen Date: 06/18/23 HPI Annual Exam HPI Details ?Patient is a 59-year-old female here today for routine annual physical.? Patient has a past medical history significant for borderline high cholesterol, GERD, h/o? diverticulitis. . .. GERD: Patient continues on omeprazole 40 mg which has significantly reduced her GERD symptoms. .. Borderline high cholesterol: Patient's history of borderline high cholesterol. Will continue to follow fasting lipid panel.. ?mammogram: Done in June of 2023- BIrads 1- due for new mammogram 06/2024 ?colorectal cancer screening: done at [facility] 2017-? 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 ?vaccines:? up-to-date with COVID vaccine, up-to-date with tetanus vaccine,? needs shingles. Laboratory Tests 06/18/21 07/11/21 06/26/22 07:05 07:50 08:04 Creatinine C-Reactive Protein 1.78 H 9.45 H Cholesterol 225 LDL Cholesterol, C alc 144 Rheumatoid Factor < 15.0 CHRIS Screen NEGATIVE Lyme Screen IgG & IgM <0.90 08/27/23 09:22 Creatinine 0.76 C-Reactive Protein Cholesterol 220 H LDL Cholesterol, C alc 143 H Rheumatoid Factor CHRIS Screen Lyme Screen IgG & IgM ? PFSH Medical History Congenital hip dysplasia Cellulitis of right ankle Diverticulitis GERD (gastroesophageal reflux disease) Surgical History History of section History of hip surgery Hx of colonoscopy History of total right hip arthroplasty Family History Father Diabetes Social History Housing: House Alcohol intake: current Patient Tobacco Use Status: Never used Tobacco e-Cigarette/Vaping Use: Never Used Second Hand Smoke Exposure: No service: No Current occupational status: employed Current occupation: [employer] Cognitive needs: No Hearing needs: No Vision needs: No Questionnaire PHQ-9 Over the last 2 weeks, how often have you been bothered by any of the following problems? 1. Little interest or pleasure in doing things: not at all 2. Feeling down, depressed, or hopeless: not at all 3. Trouble falling or staying asleep, or sleeping too much: not at all 4. Feeling tired or having little energy: not at all 5. Poor appetite or overeating: not at all 6. Feeling bad about yourself - or that you are a failure or have let yourself or your family down: not at all 7. Trouble concentrating on things, such as reading the newspaper or watching television: not at all 8. Moving or speaking so slowly that other people could have noticed. Or the opposite - being so fidgety or restless that you have been moving around a lot more than usual: not at all 9. Thoughts that you would be better off or of hurting yourself in some way: not at all Total score: 0 Depression Screening Interpretation: Negative Depression Screening Done: Yes 36663 - PHQ-9 Billing: Yes Source: Developed by Drs. Jann Mcconnell, Natalie Mendez, Mychal Baker and colleagues, with an educational misael from [employer]. Thrive Questionnaire Date Thrive assessed: 06/22/24 I am a: Patient What is your living situation today?: I have a steady place to live Within the past 12 months, did the food you bought not last and you didn't have the money to get more?: Never true Within the past 12 months, did you worry whether your food would run out before you got money to buy more?: Never true Do you have trouble paying for medicines?: No Do you have trouble getting transportation to medical appointments?: No Do you have trouble paying your heating and electricity bill?: No Do you have trouble taking care of your child, family member or friend?: No Do you have trouble with day-to-day activities such as bathing, preparing meals, shopping, managing finances, etc.?: No Are you currently unemployed and looking for a job?: No Are you interested in more education?: No Please select the resources that you would like help with: None Currently or been in a relationship where the following occur: No concerns reported THRIVE Score: 0 AUDIT C Alcohol Use Questionnaire (AUDIT-C) 1. How often do you have a drink containing alcohol?: Monthly or less 2. How many drinks containing alcohol do you have on a typical day when you are drinking?: 1 or 2 3. How often do you have six or more drinks on one occasion?: Never Total Score: 1 DONNIE-7 AMB Questionnaire DONNIE-7 Date DONNIE - 7 assessed: 06/22/24 Feeling nervous, anxious, or on edge: 0 = Not at all Not being able to stop or control worryin = Not at all Worrying too much about different things: 0 = Not at all Trouble relaxin = Not at all Being so restless that it is hard to sit still: 0 = Not at all Becoming easily annoyed or irritable: 0 = Not at all Feeling afraid as if something awful might happen: 0 = Not at all Total DONNIE-7 score (0-4 normal; 5-9 mild; 10-14 moderate; 15-21 severe): 0 Source: Developed by Drs. Jann Mcconnell, Natalie Mendez, Mychal Baker and colleagues, with an educational misael from [employer]. DONNIE-7 Assessment Billing DONNIE-7 Assessment Tool: DONNIE-7 Assessment 68986 Review of Systems Const Denies body aches, Denies chills, Denies excessive sweating, Denies fatigue, Denies fever(s) and Denies headache(s) Eyes Denies blurry vision ENT Denies dysphagia, Denies vertigo, Denies dizziness, Denies headache(s), Denies hearing loss and Denies tinnitus Card Denies chest pain, Denies chest pain with activity, Denies syncope, Denies irregular heart rhythm and Denies dyspnea Resp Denies chest congestion, Denies cough, Denies hemoptysis, Denies dyspnea and Denies wheezing GI Denies abdominal pain, Denies melena, Denies hematochezia, Denies coffee ground emesis, Denies dysphagia, Denies diarrhea, Denies nausea and Denies vomiting Denies urinary frequency, Denies dysuria, Denies urinary hesitancy and Denies urinary urgency Musc Denies arthralgias, Denies limited range of motion, Denies muscle cramps and Denies muscle weakness Skin/Breast Denies rash and Denies skin ulcer Neuro Denies Abnormal speech present, Denies confusion, Denies vertigo, Denies dizziness, Denies syncope, Denies headache(s), Denies memory loss and Denies seizure-like activity Psych Denies anxiety, Denies confusion, Denies depression, Denies memory loss, Denies panic attacks and Denies paranoia Endo Denies excessive sweating, Denies fatigue, Denies flushing, Denies polydipsia and Denies polyuria Aller/Immun Denies wheezing Physical exam (Primary Care) Vital Signs: Last Vital Signs Pulse 60 06/22/24 09:09 BP 132/72 06/22/24 09:09 Pulse Ox 95 06/22/24 09:09 Oxygen Delivery Method Room Air 06/22/24 09:09 BMI result Body Mass Index 26.5 Tobacco/Smoking Status: Tobacco use Status Tobacco use date assessed 06/18/23 06/22/24 09:15 Patient Tobacco Use Status Never used Tobacco 06/22/24 09:15 e-Cigarette/Vaping Use Never Used 06/22/24 09:15 PHQ-9: PHQ-9 Score PHQ-9: Total score 0 06/22/24 09:15 Depression Screening Interpretation: Negative Thrive Assessment: Date of Thrive Assessment Date Thrive assessed 06/22/24 06/22/24 09:15 Currently or been in a relationship where the following occur: No concerns reported Const General: cooperative, comfortable, no acute distress, alert and awake; No confusion Orientation/consciousness: oriented to person, oriented to place, patient oriented x3 and No confusion HENMT Head: Yes normocephalic Ears: external ears normal and TM's normal bilaterally Face and sinus: No sinus tenderness Mouth: Normal oral and palatal mucosa present and tongue normal Teeth and gingiva: dentition normal and gingiva normal Throat: Yes posterior oropharynx normal, Yes tonsils normal and Yes uvula midline Eyes Conjunctivae: conjunctivae normal Sclerae: sclerae normal Pupils: Equal, round and reactive pupils present EOM: EOMs intact bilaterally Direct Ophthalmoscopy: No no photophobia Neck Neck: Yes no lymphadenopathy, No tender and Yes no JVD Thyroid: Thyroid normal Carotids: no bruits Chest Chest palpation & inspection: no tenderness Resp Effort & Inspection: normal respiratory effort, no audible wheezes, not labored and no stridor Auscultation: no crackles, no rales, no rhonchi and no wheezes Cardio Jugular venous distension: no JVD Rate: regular rate, not bradycardic and not tachycardic Rhythm: regular rhythm Bruits: no carotid bruits Peripheral pulses: Peripheral pulses 2+ throughout GI Inspection: Yes normal to inspection, No abdominal wall ecchymosis and No visible herniation Palpation (GI): Soft to palpation, nontender, no guarding, not rigid and No hepatosplenomegaly present Auscultation: normoactive bowel sounds General: Yes no CVA tenderness Back/Spine/Pelvis Back: no CVA tenderness and No back tenderness Cervical Spine: cervical ROM normal Thoracic/Lumbar Spine: thoracic and lumbar spine normal to inspection, straight leg raise negative bilaterally, No thoraco-lumbar ROM limited and No lumbar spinal tenderness Skin Lesions: no lesions Rashes: no rashes Wounds: no wounds Neuro General: oriented to person, oriented to place, patient oriented x3, CN's II-XI intact bilaterally and No confusion Cranial nerves: Yes Equal, round and reactive pupils present and Yes Normal accommodation reflex present Cognition (Neuro): normal cognition Speech: No Abnormal speech present Gait exam (Neuro): Normal gait present Motor exam (neuro): 5/5 motor strength present throughout Extrem Right upper extremity: full ROM; no cyanosis Left upper extremity: full ROM; no cyanosis Right lower extremity: no edema Left lower extremity: no edema Psych Appearance: grossly normal Mental Status: mental status grossly normal Affect: normal affect Attitude: cooperative Thought process: Normal thought process present Assessment and Plan Assessment & Plan (1) Annual physical exam: Code(s): Z00.00 - Encounter for general adult medical examination without abnormal findings (2) GERD (gastroesophageal reflux disease): Code(s): K21.9 - Gastro-esophageal reflux disease without esophagitis Qualifiers: Esophagitis presence: without esophagitis Qualified Code(s): K21.9 - Gastro-esophageal reflux disease without esophagitis Plan: She reports her GERD symptoms have been fairly well controlled with the use daily PPI therapy. Has been modifying her diet as well. (3) Bunion, right foot: Code(s): M21.611 - Bunion of right foot Plan: Has significant right foot bunion, will be following up with a foot and ankle surgeon. She anticipates doing physical therapy for her foot and ankle. Orders: Orders Complete Blood Count Auto Diff Today K21.9 - Gastro-esophageal reflux disease without esophagitis Comprehensive [place]. Panel Fast Today E78.9 - Disorder of lipoprotein metabolism, unspecified Lipid Panel Today E78.9 - Disorder of lipoprotein metabolism, unspecified Patient Instructions: Goal: Total cholesterol to be below 200 :Barriers: Adherence to physical activity and healthy eating habits Coding Level of Care Code Est Pt Prev Care 40-64y(28047) Diagnoses Annual physical exam Z00.00 Gastroesophageal reflux disease without esophagitis K21.9 Esophagitis presence: without esophagitis Bunion, right foot M21.611 Additional Codes DONNIE-7 Assessment Billing - DONNIE-7 Assessment Tool: DONNIE-7 Assessment 71036 ([id number])
== END 2024-06-22 09:28 | disposition home or self-care (01) ==
PROVIDERS: PCP Physician Assistant; Visit Provider Physician Assistant
DX: Z00.00 Encounter for general adult medical examination without abnormal findings (principal); K21.9 Gastro-esophageal reflux disease without esophagitis; M21.611 Bunion of right foot
CPT/HCPCS: 99396

== ENCOUNTER 2024-07-12 08:09 | Outpatient (REF) | payer OTHER, SELFPAY ==
--- NOTE | ~2024-07-12 | MM_ITS ---
EXAMINATION: MM SCREENING DIGITAL BREAST TOMOSYNTHESIS, BILATERAL CLINICAL INFORMATION: Screening. Asymptomatic. COMPARISON: Mammography: This study is compared with prior exams dating back to 2017. TECHNIQUE: Digital breast tomosynthesis is performed in both the craniocaudal and mediolateral oblique views along with computer-aided detection (CAD). Synthesized 2D images are generated from the tomosynthesis. FINDINGS: There are scattered areas of fibroglandular density (ACR BI-RADS breast composition Category b). There are no significant masses, abnormal calcifications, or other abnormalities. Postbiopsy tissue marker in the right breast. MM/MM tomosynthesis screening BI IMPRESSION: No mammographic evidence of malignancy. ASSESSMENT: BI-RADS BI-RADS 1 - Negative RECOMMENDATION: Routine annual mammography screening. 1 year F/U This examination should not preclude the clinical evaluation of a suspicious palpable abnormality. This patient's information was entered into a reminder system with a target due date for their next mammogram. Electronically signed by: Valeria Hampton MD 08/09/2024 09:47 AM EDT
== END 2024-07-12 08:10 | disposition home or self-care (01) ==
LOC: HO.MAMMO 08:09
PROVIDERS: PCP Physician Assistant; Visit Provider Physician Assistant
DX: Z12.31 Encounter for screening mammogram for malignant neoplasm of breast (principal)
CPT/HCPCS: 77063; 77067

== ENCOUNTER → 2024-07-12 08:15 | Outpatient (BNV) | payer OTHER, SELFPAY | PROVIDERS: PCP Physician Assistant; Visit Provider Radiology Diagnostic Radiology | DX: Z12.31 Encounter for screening mammogram for malignant neoplasm of breast (principal) | CPT/HCPCS: 77063; 77067 ==

== ENCOUNTER 2025-06-27 07:56 | Outpatient (AMB) | payer OTHER, SELFPAY ==
--- OUTSIDE RECORDS SUMMARY | 2025-06-27 07:59 | XMS_ITS | Patient Health Record ---
Author Organization [facility] Address [address] [place] [address] Care Team Providers Care Sharepoint Engineer Name Role Phone Ailyn Brady Unavailable [phone] Reason For Referral No Information Problems Problem Type SNOMED Code ICD Code Onset Dates Problem Status W/U Status Risk Notes Problem Gynecological examination normal (991528568950909) Routine gynecological examination (V72.31) Active confirmed Major Problem Exercises teaching, guidance, and counseling ([id number]) Exercise counseling (V65.41) Active confirmed Diag Plan Of Treatment No Information Insurance Providers Payer Name Payer Address Payer Phone Subscriber Number Group Number Insured Name Patient Relationship to Insured Coverage Start Date Coverage End Date [facility] [address] [place] [address] [id number] MARIANELA CASTILLO Self - patient is the insured
--- OUTSIDE RECORDS SUMMARY | 2025-06-27 07:59 | XMS_ITS | Clinical Summary ---
Author Organization [facility] Address [address] [place] [id number] Phone Care Team Providers Care Bread Slicer Machine Name Role Phone Shyam Hernandez Primary Care Provider + Allergies No known active allergies Medications No known medications Active Problems Problem Noted Date Diagnosed Date Chronic pain of right ankle 07/19/2022 Assessment & Plan (07/19/2022 11:02 PM EDT): Currently clinically quiescent x 6 months. Encouraged to wear well fitting, supportive shoes. Frequent resting, icing, topical Arnica versus Voltaren versus Biofreeze versus medicated patches such as Salonpas or IcyHot patch after warm pack application. Avoid falls, injuries, overuse. Gentle, regular ROM, stretching and muscle strengthening exercises. Keep a diary of flares and modifying/ triggering factors and get lab work at the time of flare, take pictures if any swelling, redness or other abnormalities observed. Arthritis of left hip 07/19/2022 Assessment & Plan (07/19/2022 10:57 PM EDT): Secondary to congenital hip dysplasia-currently manageable though she is aware about ongoing deterioration that may require THR in near future. Continue joint protection, energy conservation techniques. Avoid falls, injuries and overuse. Status post total hip replacement, right 022 Assessment & Plan (07/19/2022 10:58 PM EDT): Performed in 2011 due to underlying congenital hip dysplasia-she is very pleased with its results. Chronic fatigue 07/19/2022 Assessment & Plan (07/19/2022 11:03 PM EDT): Balance rest and activity. Keep well-hydrated. Follow age-appropriate screenings and preventive strategies. Gentle, regular exercise routine. Avoid falls, injuries, overuse, sick contacts. Well-balanced nutritionally diet. Keep regular engagement in hobbies/favorite activities. Immunizations Immunization Administration Dates Next Due Influenza Trivalent w/ Preservative IM Tdap 03/21/2015 Family History Medical History Relation Comments Diabetes Father Relation Status Comments Father Social History Tobacco Use Types Packs/Day Years Used Date Smoking Tobacco: Never Smokeless Tobacco: Never Education Answer Date Recorded Are you interested in more education? Not on aguila e 03/21/2023 Are you concerned about learning? Not on file 03/21/2023 No 03/21/2023 No 03/21/2023 Digital Access Answer Date Recorded No 04/19/2023 No 04/19/2023 Reliable internet access at home? Not on file 04/19/2023 Device with a working camera? Not on file Comments Unknown Sex and Gender Information Value Date Recorded Sex Assigned at Not on file Legal Sex Female 9:41 PM EDT Gender Identity Not on file Sexual Orientation Not on file Last Filed Vital Signs Vital Sign Reading Time Taken Comments Blood Pressure 120/70 07/19/2022 1:02 PM EDT Pulse - - Temperature - - Respiratory Rate - - Oxygen Saturation - - Inhaled Oxygen Concentration - - Weight 66.7 kg (147 lb) 07/19/2022 1:02 PM EDT Height 162.6 cm (5' 4 ) 07/19/2022 1:02 PM EDT Body Mass Index 25.23 07/19/2022 1:02 PM EDT Plan of Treatment Health Maintenance Due Date Last Done Comments LIPID PANEL 1965 DEPRESSION SCREENING 1977 HEPATITIS C SCREENING 1983 HIV ONE-TIME SCREENING (18-6 5 YEARS) 1983 PAP SMEAR 1986 SCREENING FOR DIABETES 2000 MAMMOGRAM 2005 COLOGUARD 2010 COLONOSCOPY 2010 COLORECTAL CANCER SCREENING 2010 FIT TEST 2010 FOBT 2010 SIGMOIDOSCOPY 2010 VIRTUAL COLONOSCOPY 2010 PNEUMOCOCCAL VACCINES (50+ years) (1 of 1 - PCV) 2015 ZOSTER VACCINES (1 of 2) 2015 COVID-19 VACCINE (2023-2 5 season) 2024 04/25/2021, 03/27/2021 Adult Td,Tdap Booster 03/21/2025 03/21/2015 RSV VACCINE (1 - 1-dose 75+ series) 2040 SMOKING STATUS SCREENING (On ce After 26 Yrs) Completed 07/19/2022 HEPATITIS A VACCINES Aged Out No long er eligible based on patient's age to complete this topic HIB VACCINES Aged Out No longer eligi ble based on patient's age to complete this topic MENINGOCOCCAL VACCINES (ACWY) Aged Out No longer eligible based on patient's age to complete this topic MENINGOCOCCAL VACCINES (B) Aged Out N o longer eligible based on patient's age to complete this topic Medical Devices Not on file Insurance [facility] [address] [place] [address] [facility] [address] [place] [address] [facility] [address] [place] [id number] [facility] Care Teams Bread Slicer Machine Relationship Specialty Start Date End Date Shyam Hernandez PA [address] [place] [address] PCP - General 07/19/22 Additional Source Comments The information contained in this document represents components of the legal health record. It is not the complete legal health record.[facility]
--- OUTSIDE RECORDS SUMMARY | 2025-06-27 07:59 | XMS_ITS | Clinical Summary ---
Author Organization [facility] Address [address] [place] [address] Phone Care Team Providers Care Cnc Mill Operator Name Role Phone Shyam Hernandez Primary Care Provider Encounters Date Type Department Care Team Description 06/20/2025 Lab Requisition [facility] - Main Lab [address] [facility] [place] [address] Rajendra Rogers MD Encounter for gynecological examination (general) (routine) without abnormal findings from Last 3 Months Social History Tobacco Use Types Packs/Day Years Used Date Smoking Tobacco: Never Assessed Comments Unknown Sex and Gender Information Value Date Recorded Sex Assigned at Not on file Legal Sex Female 11:13 AM EST Gender Identity Not on file Sexual Orientation Not on file Plan of Treatment Health Maintenance Due Date Last Done Comments Breast Cancer Screening 1965 DTaP,Tdap,and Td Vaccines (1 - Tdap) 1984 Cervical Cancer Screening: P ap Smear 1986 Pneumococcal Vaccine: 50+ Ye ars (1 of 1 - PCV) 2015 Zoster Vaccines (1 of 2) 2015 COVID-19 Vaccine ( - 2023-2 5 season) 2024 Depression Screening 11/24/2024 Colorectal Cancer Screening: Colonoscopy 06/20/2025 HIV Screening 06/20/2025 Hepatitis C Screening 06/20/2025 Social Influencers of Health Screening 06/20/2025 Influenza Vaccine (#1) 2025 RSV Immunization Adult Patie nts (1 - 1-dose 75+ series) 2040 HIB Vaccines Aged Out No longer eligi ble based on patient's age to complete this topic HPV Vaccines Aged Out No longer eligi ble based on patient's age to complete this topic Hepatitis A Vaccines Aged Out No long er eligible based on patient's age to complete this topic Hepatitis B Vaccines Aged Out No long er eligible based on patient's age to complete this topic IPV Vaccines Aged Out No longer eligi ble based on patient's age to complete this topic MMR Vaccines Aged Out No longer eligi ble based on patient's age to complete this topic Meningococcal ACWY Vaccine Aged Out N o longer eligible based on patient's age to complete this topic Meningococcal B Vaccine Aged Out No l onger eligible based on patient's age to complete this topic RSV Immunization Patients Un rayshawn 20 months Aged Out No longer eligible b ased on patient's age to complete this topic Varicella Vaccines Aged Out No longer eligible based on patient's age to complete this topic Insurance [facility] Care Teams Cnc Mill Operator Relationship Specialty Start Date End Date Shyam Hernandez PA [address] [place] [id number] PCP - General Physician [employer] Scoreboard Operator 06/20/25
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
[2025-06-27 08:05] VITALS: BP 132/78; PULSE 61; TEMP 36.2; O2SAT 97; BMI 24.5
== END 2025-06-27 08:27 | disposition home or self-care (01) ==
LOC: HO.HMCH 07:56
PROVIDERS: PCP Physician Assistant; Visit Provider Physician Assistant
DX: Z00.00 Encounter for general adult medical examination without abnormal findings (principal); E78.9 Disorder of lipoprotein metabolism, unspecified; M54.50 Low back pain, unspecified; G89.29 Other chronic pain

== ENCOUNTER → 2025-06-27 07:56 | Outpatient (BNVA) | payer OTHER, SELFPAY | PROVIDERS: PCP Physician Assistant; Visit Provider Physician Assistant | DX: Z00.00 Encounter for general adult medical examination without abnormal findings (principal); E78.9 Disorder of lipoprotein metabolism, unspecified; M54.50 Low back pain, unspecified; G89.29 Other chronic pain; Z13.31 Encounter for screening for depression; Z13.39 Encounter for screening examination for other mental health and behavioral disorders | CPT/HCPCS: 96127 ==

== ENCOUNTER 2025-07-14 07:23 | Outpatient (REF) | payer OTHER, SELFPAY ==
--- NOTE | ~2025-07-14 | MM_ITS ---
EXAMINATION: MM SCREENING DIGITAL BREAST TOMOSYNTHESIS, BILATERAL CLINICAL INFORMATION: Screening. Asymptomatic. COMPARISON: Mammography: Comparison is made with available priors TECHNIQUE: Digital breast mammography with tomosynthesis is performed in both the craniocaudal and mediolateral oblique views along with computer-aided detection (CAD). FINDINGS: There are scattered areas of fibroglandular density (ACR BI-RADS breast composition Category b). Right marker clip from previous benign needle core biopsy. There are no significant masses, abnormal calcifications, or other abnormalities. MM/MM tomosynthesis screening BI IMPRESSION: No mammographic evidence of malignancy. ASSESSMENT: BI-RADS BI-RADS 2 - Benign Findings RECOMMENDATION: Routine annual mammography screening. 1 year F/U This examination should not preclude the clinical evaluation of a suspicious palpable abnormality. This patient's information was entered into a reminder system with a target due date for their next mammogram. Electronically signed by: Orly Zuniga DO 07/18/2025 09:23 AM EDT
--- OUTSIDE RECORDS SUMMARY | 2025-07-14 07:25 | XMS_ITS | Patient Health Record ---
Author Organization [facility] Address [address] [place] [address] Care Team Providers Care College Director Name Role Phone Ailyn Brady Unavailable [phone] Reason For Referral No Information Problems Problem Type SNOMED Code ICD Code Onset Dates Problem Status W/U Status Risk Notes Problem Gynecological examination normal (431719485017640) Routine gynecological examination (V72.31) Active confirmed Major Problem Exercises teaching, guidance, and counseling ([id number]) Exercise counseling (V65.41) Active confirmed Diag Plan Of Treatment No Information Insurance Providers Payer Name Payer Address Payer Phone Subscriber Number Group Number Insured Name Patient Relationship to Insured Coverage Start Date Coverage End Date [facility] [address] [place] [address] [id number] MARIANELA CASTILLO Self - patient is the insured
--- OUTSIDE RECORDS SUMMARY | 2025-07-14 07:25 | XMS_ITS | Clinical Summary ---
Author Organization [facility] Address [address] [place] [id number] Phone Care Team Providers Care Endless Bed Drum Sander Name Role Phone Shyam Hernandez Primary Care [...] activities. Immunizations Immunization Administration Dates Next Due INFLUENZA, SPLIT VIRUS, TRIVALENT W/ PRESERVATIV E IM 08/08/2021 Tdap 03/21/2015 Family History Medical History Relation [...] VACCINES (1 of 2) 2015 COVID-19 VACCINE (3 - 2023-2 5 season) 2024 04/25/2021, 03/27/2021 Adult Td,Tdap [...] topic Medical Devices Not on file Insurance [address] [place] [address] [facility] [place] [address] [facility] Care Teams Endless Bed Drum Sander Relationship Specialty Start Date End Date Shyam Hernandez PA [address] [place] [address] PCP - General 07/19/22 Additional Source Comments The information contained in this document represents components of the legal health record. It is not the complete legal health record.[facility]
--- OUTSIDE RECORDS SUMMARY | 2025-07-14 07:25 | XMS_ITS | Clinical Summary ---
Author Organization [address] [facility] Address [address] [place] [address] Phone Care Team Providers Care Platform Architect Name Role Phone Shyam Hernandez Primary Care Provider [phone] Encounters Date Type Department Care Team Description 06/20/2025 Lab Requisition [facility] - Main Lab [address] [facility] [email or web address] [address] Rajendra Rogers MD Encounter for [...] DTaP,Tdap,and Td Vaccines (1 - Tdap) 1984 Pneumococcal Vaccine: 50+ Ye ars (1 of 1 - PCV) 2015 Zoster Vaccines (1 of 2) 2015 COVID-19 Vaccine (1 - 2023-2 5 season) 2024 Depression Screening 11/24/2024 Colorectal Cancer Screening: Colonoscopy 06/20/2025 HIV Screening 06/20/2025 Hepatitis C Screening 06/20/2025 Social Influencers of Health Screening 06/20/2025 Influenza Vaccine (#1) 2025 Cervical Cancer Screening: P ap Smear 06/17/2028 06/17/2025 RSV Immunization Adult Patie nts (1 - [...] on patient's age to complete this topic Procedures Procedure Name Priority Date/Time Associated Diagnosis Comments PAP SMEAR Routine 06/17/2025 12:00 AM EDT Encounter for gynecological examination (general) (routine) without abnormal findings from Last 3 Months Results * Pap smear (06/17/2025 12:00 AM EDT) Interpretation Negative for intraepithelial lesion or malignancy 06/28/2025 11:[address] [facility] General Categorization Negative 06/28/2025 11:[address] [facility] Other Findings Atrophy 06/28/2025 11:[address] [facility] Specimen Adequacy Satisfactory for evaluation, endocervical/duvall sformation zone component present 06/28/2025 11:[address] [facility] Pap Methodology Liquid Based Pap Test 06/28/2025 11:[address] [facility] Disclaimer The Pap test is a screening test which carries an inherent false negative rate. These test results should be correlated with the patient's clinical findings and history. This Pap test was processed using an automated screening system. Technical cytopathology services provided by [facility], at [address] [place] [address], [place] [address] (CLIA # [id number]/Dona Arriaga MD, Stitching Machine Feeder Or Offbearer.) 06/28/2025 11:50 AM EDT [facility] Console Pap Interpretation Reported 06/28/2025 11:50 AM EDT [facility] Brushing/Spatula Cervix uteri structure / Unknown 06/17/2025 06/20/2025 6:53 AM EDT us Rajendra Rogers MD LAB CYTOLOGY ORDERABLES Final Result [facility] [address] [place] [address], from Last 3 Months Insurance [facility] Care Teams Platform Architect Relationship Specialty Start Date End Date Shyam Hernandez PA [address] [place] [phone] PCP - General Physician Medical Insurance Claims Specialist 06/20/25
[2025-07-14 08:46] LABS: Hematocrit 42.9 % (37.0-47.0); Hemoglobin 14.0 g/dl (12.0-16.0); Mean Corpuscular HGB Conc 32.6 g/dl (31.0-35.0); Mean Corpuscular Hemoglobin 29.0 pg (27.0-33.0); Mean Corpuscular Volume 88.8 fL (80.0-98.0); NRBC Abs Auto 0.000 X10*3/uL (0.0-0.012); NRBC Pct Auto 0.0 /100WBC (0.0-0.2); Platelet Count 321 X10*3/uL (160-400); Red Blood Count 4.83 X10*6/uL (4.20-5.50); White Blood Count 5.8 X10*3/uL (4.8-10.8)
[2025-07-14 09:18] LABS: Alanine Aminotransferase 28 U/L (0-31); Albumin Level 4.6 g/dL (3.5-5.0); Alkaline Phosphatase 75 U/L (39-117); Anion Gap 12 (12-20); Aspartate Amino Transferase 26 U/L (5-31); Blood Urea Nitrogen 20 mg/dL (9-16); Calcium 9.1 mg/dL (8.4-10.2); Carbon Dioxide 28 mmol/L (22-29); Chloride 106 mmol/L (96-108); Cholesterol 224 mg/dL (<200); Estimated Glomerular Filt Rate > 60; HDL Cholesterol 47 mg/dL (>40); Potassium 3.8 mmol/L (3.3-5.1); Sodium 142 mmol/L (135-145); Total Protein 7.4 g/dL (6.5-8.0); Triglycerides 125 mg/dL (<150)
== END 2025-07-14 07:24 | disposition home or self-care (01) ==
LOC: HO.MAMMO 07:23
PROVIDERS: PCP Physician Assistant; Referring Provider Obstetrics & Gynecology; Visit Provider Physician Assistant
DX: E78.9 Disorder of lipoprotein metabolism, unspecified (principal); Z12.31 Encounter for screening mammogram for malignant neoplasm of breast; Z13.6 Encounter for screening for cardiovascular disorders
CPT/HCPCS: 36415; 77063; 77067; 80053; 80061; 85027

== ENCOUNTER → 2025-07-14 07:30 | Outpatient (BNV) | payer OTHER, SELFPAY | PROVIDERS: PCP Physician Assistant; Referring Provider Obstetrics & Gynecology; Visit Provider Internal Medicine | DX: Z12.31 Encounter for screening mammogram for malignant neoplasm of breast (principal) | CPT/HCPCS: 77063; 77067 ==